=== PATIENT | female | born 1965 | race Hispanic/Latino ===

== ENCOUNTER 2018-03-29 10:57 | Inpatient (IN) | payer BC, MEDICAID ==
[2018-03-29 10:58] VITALS: BMI 19.1
[2018-03-29] MEDS ORDERED: Sodium Chloride 0.9% 1,000 ML IV ONE (11:37)
[2018-03-29 12:10] LABS: BASO # 0.1 K/uL (0.0-0.2); BASO % 1.6 % (0.0-2.0); EOS # 0.1 K/uL (0.0-0.7); EOS % 0.9 % (0.0-4.0); HEMOGLOBIN 12.6 g/dL (11.0-16.0); LYMPH # 4.8 K/uL (1.0-4.3); LYMPH % 59.9 % (20.0-40.0); MEAN CORPUSCULAR HEMOGLOBIN 36.3 pg (27.0-31.0); MEAN CORPUSCULAR HGB CONC 34.2 g/dL (33.0-37.0); MEAN PLATELET VOLUME 8.3 fL (7.2-11.7); MONO # 0.6 K/uL (0.0-0.8); NEUT # 2.4 K/uL (1.8-7.0); NEUT % 29.6 % (50.0-75.0); NRBC % 0.3 % (0.0-2.0); RBC 3.48 Mil/uL (3.80-5.20); RED CELL DISTRIBUTION WIDTH 18.2 % (11.5-14.5); WHITE BLOOD COUNT 8.1 K/uL (4.8-10.8)
[2018-03-29 12:11] LABS: MEAN CELL VOLUME 106.3 fL (81.0-99.0)
--- NOTE | 2018-03-29 12:11 | C.PDOC ---
History Of Present Illness 52 y/o female with PMHx of alcohol abuse presents to the ED accompanied by significant other, requesting detox from alcohol. On arrival patient appears intoxicated but is awake, responsive to verbal stimuli. She denies any active complaints. Patient admits her last drink was this morning, and states she drank "a lot." Time Seen by Provider: 03/29/18 11:36 Chief Complaint (Nursing): Substance Abuse History Per: Patient History/Exam Limitations: intoxication Onset/Duration Of Symptoms: Days Current Symptoms Are (Timing): Still Present Suicide/Self Injury Attempted (Context): None Modifying Factor(s): Alcohol Involuntary Hold By: None Past Medical History Reviewed: Historical Data, Nursing Documentation, Vital Signs Vital Signs: Last Vital Signs Temp 98 F 03/29/18 11:14 Pulse 120 H 03/29/18 11:14 Resp 20 03/29/18 11:14 BP 159/90 H 03/29/18 11:14 Pulse Ox 95 03/29/18 11:14 - Medical History PMH: Anxiety, Depression, Seizures Denies: Diabetes, Hepatitis, HIV, HTN, Chronic Kidney Disease, Sexually Transmitted Disease Comment Only: Bipolar Disorder (pt denies bipolar) Other PMH: Alcohol Abuse Surgical History: - [facility] ALCOHOL DETOXIFICATION (07/20/13) CENTRAL VENOUS CATHETER PLACEMENT WITH GUIDANCE (01/01/12) CLOSURE SKIN & SUBCUTANEOUS NEC (06/13/14) IMMOBILIZ/WOUND ATTN NEC (03/15/14) INJECT/INFUSE ELECTROLYT (12/20/14) INJECT/INFUSE NEC (12/23/14) INSERT INDWELLING CATH (12/20/14) OTHER LOCAL DESTRUC SKIN (03/15/14) PACKED CELL TRANSFUSION (01/01/12) PHYSICAL THERAPY NEC (10/06/14) PSYCHIA INTERV/EVAL NEC (07/09/13) TETANUS TOXOID ADMINIST (06/13/14) THERAPEUTIC PLATELETPHERESIS (01/01/12) Family History: States: No Known Family Hx - Social History Hx Tobacco Use: No Hx Alcohol Use: Yes Hx Substance Use: No - Immunization History Hx Tetanus Toxoid Vaccination: No Hx Influenza Vaccination: No Hx Pneumococcal Vaccination: No Review Of Systems Review Of Systems: ROS cannot be obtained secondary to pt's inabilty to answer questions. (intoxicated) Physical Exam - Physical Exam Appears: Non-toxic, No Acute Distress, Other (Acutely intoxicated but awake, slightly anxious) Skin: Normal Color, Warm, No Rash, No Ecchymosis Head: Atraumatic, Normacephalic Eye(s): bilateral: PERRL Nose: No Flaring, No Discharge Oral Mucosa: Moist Throat: No Drooling Neck: Trachea Midline, No Midline Cervical Tenderness, No Paracervical Tenderness, No Step Off Deformity, Supple Chest: Symmetrical, No Deformity, No Tenderness Cardiovascular: Rhythm Regular (reg tachy), No Murmur, No JVD Respiratory: No Decreased Breath Sounds, No Accessory Muscle Use, No Rales, No Rhonchi, No Wheezing Gastrointestinal/Abdominal: Soft, No Tenderness, No Distention, No Guarding Back: No CVA Tenderness Extremity: Normal ROM, No Tenderness, No Pedal Edema, No Deformity Pulses: Left Dorsalis Pedis: Normal, Right Dorsalis Pedis: Normal Neurological/Psych: Normal Speech (slurred), Other (Awake, alert, responsive to verbal stimuli) ED Course And Treatment - Laboratory Results Result Diagrams: 03/29/18 11:56 03/29/18 11:56 Lab Interpretation: Abnormal ECG: Interpreted By Me, Viewed By Me ECG Rhythm: Sinus Tachycardia ECG Interpretation: No Acute Changes Rate From EC (bpm) O2 Sat by Pulse Oximetry: 95 (RA) Pulse Ox Interpretation: Normal Progress Note: Labs, CXR, and EKG ordered for medical clearance. Pt was OBS in ED for 7 hours, sleeping comfortably. At 18:00, pt became little more ar ousable, c/o mild shakes. Afebrile, hemodynamicaly stable. Neuorologicaly intact. Ativan IV given. Banana bag in progress. Blood work review, appears abnormal, dehydration. abnormal LFT r/o alcohol withdrawal. Case discussed with and sig out, pending re-eval, dispo. Disposition - Disposition Disposition Time: 18:06 Condition: FAIR Forms: [facility] (Polish) - Clinical Impression Clinical Impression: Alcohol withdrawal syndrome - PA / AMMONIA SOLUTION PREPARER / Resident Statement MD/DO has reviewed & agrees with the documentation as recorded. - Scribe Statement The provider has reviewed the documentation as recorded by the Scribkatherine Bajwa All medical record entries made by the Scribe were at my direction and personally dictated by me. I have reviewed the chart and agree that the record accurately reflects my personal performance of the history, physical exam, medical decision making, and the department course for this patient. I have also personally directed, reviewed, and agree with the discharge instructions and disposition. Physician Patient Turnover Patient Signed Over To: Anand Riggs
[2018-03-29 13:06] LABS: ACETAMINOPHEN < 10.0 ug/mL (10.0-30.0); SALICYLATE < 1.0 mg/dL 1
[2018-03-29 13:07] LABS: ALB/GLOB RATIO 1.2 (1.0-2.1); ALBUMIN 4.8 g/dL (3.5-5.0); ALT/SGPT 66 U/L (9-52); AST/SGOT 413 U/L (14-36); BLOOD UREA NITROGEN 12 mg/dL (7-17); GFR NON-AFRICAN AMERICAN > 60
--- NOTE | 2018-03-29 13:41 | RAD ---
Chest x-ray single frontal view HISTORY: Detox. Comparison: 07/23/2013 Findings: Mild venous congestion. Mild patchy increased markings in the right infrahilar region. Upper lobe nodularity and or granulomatous changes. Tortuous aorta. Top normal heart size. Degenerative changes in the spine. Fracture deformity of the mid to distal right clavicle. Impression: Mild venous congestion. Right hilar prominence. Mild patchy increased markings in the right infrahilar region. Upper lobe nodularity and or granulomatous changes. Tortuous aorta. Degenerative changes in the spine. Fracture deformity of the mid to distal right clavicle.
[2018-03-29] MEDS ORDERED: Multivitamin (MVI) 10 ML, Thiamine 100 MG, Folic Acid 1 MG in Sodium Chloride 0.9% 1,00... IV ONE ×2 (14:13→19:49)
[2018-03-29 18:13] LABS: BARBITURATES, UR NEGATIVE (NEGATIVE); BENZODIAZEPINES, UR NEGATIVE (NEGATIVE); OPIATES, UR NEGATIVE (NEGATIVE); PHENCYCLIDINE, UR NEGATIVE (NEGATIVE)
[2018-03-29 18:35] LABS: SQUAMOUS EPITHIAL 2 /hpf (0-5); URINE BACTERIA FEW (<OCC); URINE BILIRUBIN NEGATIVE (NEGATIVE); URINE BLOOD NEGATIVE (NEGATIVE); URINE CLARITY Clear (Clear); URINE COLOR Yellow (YELLOW); URINE GLUCOSE (UA) NORMAL (Normal); URINE LEUKOCYTE ESTERASE 2+ Leu/uL (Negative); URINE PROTEIN 1+ mg/dL (NEGATIVE)
--- NOTE | 2018-03-30 02:37 | PCM.BM ---
<Justin Ford - Last Filed: 03/30/18 02:36> Treatment Plan Problems - Problems identified on initial assessmt potential for alcohol withdrawal Date Initiated: 03/30/18 Time Initiated: 02:36 Assessment reference: NA Status: Active Treatment assets and liabiliti Patient Assests: adapts well, cooperative, ADL independent, good support system, cognitively intact Patient Liabilities: substance abuse - Milieu Protocol Maintain good personal hygiene: daily Encourage regular showers, daily Remind p atient to perform daily oral care, daily Assist patient to perform ADL's Maintain personal safety: every shift Educate patient to report safety concerns to staff, every shift Monitor environment for contraband/sharps Medication safety: Monitor for expected outcome, potential side effects: every shift, Assess barriers to learning: every shift, Assess readiness for medication education: every shift <Vivienne Roth - Last Filed: 03/31/18 11:00> Family Contact Family contact name: boyfriend Family contacted how many times per week?: 1 - Goals for Treatment Patient goals for treatment: Complete detox and discuss aftercare options with counseling staff. Discharge/Continuing Care - Education Needs Education Needs: Patient Medication, Patient Diagnosis/Disease Process, Patient Coping Skills, Patient Anger Management skills, Patient Placement options, Patient Community resources, Significant Other Diagnosis/Disease Process, Significant Other Community resources - Discharge Discharge Criteria: No longer exhibiting s/s of withdrawal, Reduction of target symptoms Discharge to:: Other - Additional Comments 03/31/18 10:59 Pt. is unsure of aftercare plan but will continue to review options with the d/c planning staff. - Treatment Team Participation Patient/Family/SO Statement: 03/31/18 10:59 "I don't know what I wanna do yet. I don't even know if I have a boyfriend to go home to..." Discussed with Family/SO: No Was Patient/Family/SO present at Treatment Team Meeting: Yes
[2018-03-30] MEDS: Multiple Vitamins Tab PO SCH (09:04)
--- NOTE | 2018-03-30 13:13 | PCM.PSYCH ---
Initial Psychiatric Evaluation - Initial Psychiatric Evaluation Type of Admission: Voluntary Legal Status: Capacity Chief Complaint (in patient's own words): "I want to detox from alcohol" History of Present Illness and Precipitating Events: Patient seen, chart reviewed, case discussed Patient is a 52-year-old single, unemployed white female with no children who lives at home with her ex-boyfriend. The patient had her first drink when she was in high school and it became a problem for her in her 30s. The patient has been drinking a pint of vodka per day, with her last drink yesterday at 11 am. The patient states that when she doesnt drink she feels anxious and gets shakes and has had one seizure about 4-5 years ago. The patients longest period of sobriety was for 1 year in 2009. The patient denies any history of heroin, cocaine, marijuana or tobacco use but is prescribed Xanax .25 mg which she only takes twice per week. The patient has been to detox twice before, with her last visit 2 years ago, and has been to rehab once in 2013, which lasted 4 months. The patient use to attend AA meetings every day but recently has not gone as often. The patient states that she has never been treated with anti-alcohol med ications. The patient states that her uncle was an alcoholic. Past Psych History: depression, anxiety Past Medical History: denies Family Psych History: denies Current Medications: Active Medications Generic Name Dose Route Start Last Admin Trade Name Freq PRN Reason Stop Dose Admin Clonidine HCl 0.1 mg 03/30/18 00:20 03/30/18 09:09 Catapres PO 0.1 mg Q4H PRN Administration Symptoms of alcohol withdrawl Dicyclomine HCl 10 mg 03/30/18 01:12 03/30/18 05:22 Bentyl PO 10 mg Q6 PRN Administration Muscle spasm Folic Acid 1 mg 03/30/18 10:00 03/30/18 09:04 Folic Acid PO 1 mg DAILY SANTHOSH Administration Hydroxyzine HCl 50 mg 03/30/18 01:11 03/30/18 05:22 Atarax PO 50 mg Q6 PRN Administration Anxiety Ibuprofen 600 mg 03/30/18 01:12 03/30/18 01:42 Motrin Tab PO 600 mg Q6 PRN Administration Pain, moderate (4-7) Lorazepam 1 mg 03/30/18 00:20 Ativan PO Q4H PRN Symptoms of alcohol withdrawl Lorazepam 1 mg 03/30/18 01:00 03/30/18 12:41 Ativan PO 04/04/18 00:59 1 mg Q4H SANTHOSH Administration Taper Multivitamins 1 tab 03/30/18 10:00 03/30/18 09:04 Hexavitamin PO 1 tab DAILY SANTHOSH Administration Thiamine HCl 100 mg 03/30/18 10:00 03/30/18 09:11 Vitamin B1 Tab PO 100 mg DAILY SANTHOSH Administration Trazodone HCl 50 mg 03/30/18 00:20 03/30/18 01:42 Desyrel PO 50 mg HS PRN Administration Insomnia Past Psychiatric History - Past Psychiatric History Previous Treatment History: Intensive Outpatient Pertinent Medical Hx (Current Medical&Sleep Prob, Allergies): Allergies Allergy/AdvReac Type Severity Reaction Status Date / Time morphine Allergy ANAPHYLAXIS Verified 03/29/18 11:13 Penicillins Allergy ANAPHYLAXIS Verified 03/29/18 11:13 Sulfa (Sulfonamide Allergy ANAPHYLAXIS Verified 03/29/18 11:13 Antibiotics) codeine AdvReac VOMITING Verified 03/29/18 11:13 No Known Home Med 03/29/18 Review of Systems - Neurological Neurological: Tremor - Psychiatric Psychiatric: Abnormal Sleep Pattern, Anxiety, Depression, Difficulty Concentrating, Mood Swings. absent: Hallucinations, Homicidal Ideation, Paranoia, Suicidal Ideation Mental Status Examination - Personal Presentation Personal Presentation: Looks stated age - Affect Affect: Broad - Motor Activity Motor Activity: Psychomotor Retardation - Reliability in Providing Information Reliability in Providing Information: Good - Speech Speech: Organized, Relevant, Coherent - Mood Mood: Depressed, Anxious - Formal Thought Process Formal Thought Process: No Impairment - Cognitive Functions Orientation: Person, Place, Situation, Time Sensorium: Drowsy Attention/Concentration: Attentive Abstract Thinking: Lyons Judgement: Intact, as evidence by: Good judgement Memory: Recent intact, as evidence by: Ability to recall events of the day, Remote intact, as evidenced by: Abilit to recall sig. life events - Risk Risk: Withdrawal, Falls, Diminished functioning - Strength & Assets Inventory Strength & Assets Inventory: Cooperative - Limitations Limitations: Other DSM 5 DX - DSM 5 DSM 5 Diagnosis: Alcohol withdrawal Alcohol use d/o--severe Generalized Anxiety Disorder Depressive d/o - unspecified - Recommended/Plan of Treatment Treatment Recommendations and Plan of Treatment: Taper with Ativan Gabapentin for augmentation if needed Lexapro for Depression and LUIS As needed medication All risks, benefits and alternatives of the meds discussed and the patient agreed and understood Attend groups and activities Supportive therapy and psychoeducation [place] for abstinence CBT for relapse prevention Encourage MAT Refer to rehab or IOP, and self-help groups Teach healthy lifestyle methods, i.e. diet, exercise, meditation 34 min
--- NOTE | 2018-03-30 21:46 | CARD ---
APPROVED REPORT Date of service: 03/29/2018 EKG Measurement Heart [id number] 192P [id number] <Conclusion> Sinus tachycardia with premature atrial complexes with aberrant conduction vs baseline artifact Left axis deviation Septal infarct, age undetermined Inferior infarct, age undetermined ST & T wave abnormality, consider lateral ischemia Too much baseline artifact, please repeat. Abnormal ECG
--- NOTE | 2018-03-30 21:46 | CARD ---
APPROVED REPORT Date of service: 03/29/2018 EKG Measurement Heart [id number] <Conclusion> Sinus tachycardia Otherwise normal ECG
[2018-03-31] MEDS: Multiple Vitamins Tab PO SCH (09:52)
--- NOTE | 2018-03-31 13:38 | PCM.PYCHPN ---
Psychiatric Progress Note - Psychiatric Progress Note Patient Chief Complaint: "I want to detox from alcohol" Medication Change: Yes Medical Record Reviewed: Yes Mental Status Examination - Cognitive Function Orientation: Person, Place, Situation, Time - Mood Mood: Depressed, Anxious - Affect Affect: Broad - Formal Thought Process Formal Thought Process: No Impairment - Homicidal Ideation Homicidal Ideation: No Goal/Treatment Plan - Goal/Treatment Plan Progress Toward Problem(s) and Goals/Treatment Plan: Taper with Ativan Gabapentin for augmentation if needed Lexapro for Depression and LUIS As needed medication All risks, benefits and alternatives of the meds discussed and the patient agreed and understood Attend groups and activities Supportive therapy and psychoeducation [place] for abstinence CBT for relapse prevention Encourage MAT Refer to rehab or IOP, and self-help groups Teach healthy lifestyle methods, i.e. diet, exercise, meditation 34 min
[2018-04-01] MEDS: Multiple Vitamins Tab PO SCH (09:34)
[2018-04-01] MEDS: buPROPion 150 mg/24 Hours XL Tab PO SCH (09:35)
[2018-04-01] MEDS: Gentamicin Sulfate 0.3% Ophth SOLN OU SCH ×2 (13:40→17:11)
--- NOTE | 2018-04-02 08:54 | PCM.PYCHDC ---
Mental Status Examination - Mental Status Examination Orientation: Person Discharge Summary - Discharge Note Consultations:: List each consultation separately and include: 1. Reason for request. 2. Findings. 3. Follow-up Summary of Hospital Course include:: 1. Description of specific treatment plan utilized for patients during their course of treatmen. 2. Summarize the time- course for resolution of acute symptoms and/or regressed behaviors. 3. Describe issues identified and worked on during hospitalization. 4. Describe medication utilized. 5. Describe medical problems identified and treated. 6. Reassessment of suicide risk Summary of Hospital Course: Patient seen, chart reviewed, case discussed Patient is a 52-year-old single, unemployed white female with no children who lives at home with her ex-boyfriend. The patient had her first drink when she was in high school and it became a problem for her in her 30s. The patient has been drinking a pint of vodka per day, with her last drink yesterday at 11 am. The patient states that when she doesnt drink she feels anxious and gets shakes and has had one seizure about 4-5 years ago. The patients longest period of sobriety was for 1 year in 2009. The patient denies any history of heroin, cocaine, marijuana or tobacco use but is prescribed Xanax .25 mg which she only takes twice per week. The patient has been to detox twice before, with her last visit 2 years ago, and has been to rehab once in 2013, which lasted 4 months. The patient use to attend AA meetings every day but recently has not gone as often. The patient states that she has never been treated with anti-alcohol medications. The patient states that her uncle was an alcoholic. Past Psych History: depression, anxiety Past Medical History: denies Family Psych History: denies - Final Diagnosis (DSM 5) Condition upon Discharge: FAIR Disposition: HOME/ ROUTINE Follow-up Treatment Plan: Taper with Ativan Gabapentin for augmentation if needed Lexapro for Depression and LUIS As needed medication All risks, benefits and alternatives of the meds discussed and the patient agreed and understood Attend groups and activities Supportive therapy and psychoeducation [place] for abstinence CBT for relapse prevention Encourage MAT Refer to rehab or IOP, and self-help groups Teach healthy lifestyle methods, i.e. diet, exercise, meditation 34 min Prescriptions/Medication Reconciliation: buPROPion XL [Wellbutrin XL] 150 mg PO DAILY #30 t24 hydrOXYzine HCl [Atarax] 25 mg PO BID PRN #30 tab PRN Reason: Anxiety traZODone [Desyrel] 100 mg PO HS #30 tab
[2018-04-02] MEDS: buPROPion 150 mg/24 Hours XL Tab PO SCH (09:30)
[2018-04-02] MEDS: Gentamicin Sulfate 0.3% Ophth SOLN OU SCH (09:30)
[2018-04-02] MEDS: Multiple Vitamins Tab PO SCH (09:30)
[2018-04-02 11:27] VITALS: BP 120/81; PULSE 100; RESP 20; TEMP 98.5; O2SAT 96
== END 2018-04-02 10:30 | disposition home or self-care (01) | DRG 772 ==
LOC: C.ER 10:57 → C.7D 03-30 00:41
PROVIDERS: ADMIT Psychiatry & Neurology Psychiatry; ATTEND Psychiatry & Neurology Psychiatry
PROC: HZ2ZZZZ Detoxification Services for Substance Abuse Treatment (ICD-10-PCS; principal; 2018-03-30)
PROC: HZ42ZZZ Group Counseling for Substance Abuse Treatment, Cognitive-Behavioral (ICD-10-PCS; 2018-03-30)
PROC: HZ52ZZZ Individual Psychotherapy for Substance Abuse Treatment, Cognitive-Behavioral (ICD-10-PCS; 2018-03-30)
PROC: HZ59ZZZ Individual Psychotherapy for Substance Abuse Treatment, Supportive (ICD-10-PCS; 2018-03-30)
PROC: HZ56ZZZ Individual Psychotherapy for Substance Abuse Treatment, Psychoeducation (ICD-10-PCS; 2018-03-30)
PROC: HZ46ZZZ Group Counseling for Substance Abuse Treatment, Psychoeducation (ICD-10-PCS; 2018-03-30)
PROC: GZHZZZZ Group Psychotherapy (ICD-10-PCS; 2018-03-30)
PROC: GZ58ZZZ Individual Psychotherapy, Cognitive-Behavioral (ICD-10-PCS; 2018-03-30)
PROC: GZ56ZZZ Individual Psychotherapy, Supportive (ICD-10-PCS; 2018-03-30)
DX: F10.230 Alcohol dependence with withdrawal, uncomplicated (principal); F31.9 Bipolar disorder, unspecified; F10.220 Alcohol dependence with intoxication, uncomplicated; F41.1 Generalized anxiety disorder; Y90.8 Blood alcohol level of 240 mg/100 ml or more